=== PATIENT | male | born 1985 | race Caucasian/White ===

== ENCOUNTER 2020-10-12 23:36 | Emergency (ER) | payer OTHER ==
[~2020-10-12 23:36] MED LIST: BACLOFEN 10MG T10 MG PO; LACTINEX1 EACH PO; NAPROXEN500 MG PO
[2020-10-13] MEDS ORDERED: AUGMENTIN 875-1 EACH PO (00:46)
== END 2020-10-13 00:50 | disposition home or self-care (01) ==
LOC: FER 23:36
DX: K04.7 Periapical abscess without sinus (principal); F17.200 Nicotine dependence, unspecified, uncomplicated
CPT/HCPCS: 99283